=== PATIENT | male | born 1985 | race Asian ===

== ENCOUNTER → 2016-12-05 14:49 | Emergency (ER) | payer OTHER ==
[2016-12-05 16:32] VITALS: BP 117/61
--- NOTE | 2016-12-05 23:50 | ED ---
Zahra Almaguer Emily, scribed for Rajeev Terry MD on 12/05/16 at 1605 . Throat Pain/Nasal Congestion - HPI Summary HPI Summary: This patient is a 30 year old M presenting to [facility] with a chief complaint of right-sided blurry vision since this afternoon. Blurriness began after pt was hit in the eye with a tennis ball. The patient rates the pain 3/10 in severity. Symptoms aggravated by looking right. Symptoms alleviated by nothing. Pt reports having implants in eyes. - History of Current Complaint Chief Complaint: EDEyeProblem Time Seen by Provider: 12/05/16 15:47 Hx Obtained From: Patient Onset/Duration: Sudden Onset, Lasting Hours Severity: Mild - Allergies/Home Medications Allergies/Adverse Reactions: Allergies Allergy/AdvReac Type Severity Reaction Status Date / Time No Known Allergies Allergy Verified 12/05/16 15:01 PMH/Surg Hx/FS Hx/Imm Hx Previously Healthy: No Opthamlomology History: Reports: Hx Eye Prosthesis EENT History: Denies: Hx Deafness Infectious Disease History: No Infectious Disease History: Denies: Traveled Outside the [place] in Last 30 Days - Family History Known Family History: Positive: Diabetes Negative: Cardiac Disease - Social History Alcohol Use: Rare Substance Use Type: Reports: None Smoking Status (MU): Light Every Day Tobacco Smoker Review of Systems Negative: Fever Positive: Blurred Vision - Right sided All Other Systems Reviewed And Are Negative: Yes Physical Exam Triage Information Reviewed: Yes Vital Signs On Initial Exam: Initial Vitals Temp Pulse Resp BP Pulse Ox 97.8 F 92 16 120/82 100 12/05/16 14:57 12/05/16 14:57 12/05/16 14:57 12/05/16 14:57 12/05/16 14:57 Vital Signs Reviewed: Yes Appearance: Positive: Well-Appearing, No Pain Distress Skin: Positive: Warm, Skin Color Reflects Adequate Perfusion, Dry Head/Face: Positive: Normal Head/Face Inspection Eyes: Positive: Other: - Elliptical pupil in R eye ENT: Positive: Normal ENT inspection Neck: Positive: Supple, Nontender Respiratory/Lung Sounds: Positive: Clear to Auscultation, Breath Sounds Present Cardiovascular: Positive: RRR Abdomen Description: Positive: Nontender, Soft Bowel Sounds: Positive: Present Musculoskeletal: Positive: Normal Neurological: Positive: Normal Psychiatric: Positive: Affect/Mood Appropriate - Lacey Coma Scale Coma Scale Total: 15 Diagnostics - Vital Signs Vital Signs Temp Pulse Resp BP Pulse Ox 12/05/16 14:57 97.8 F 92 16 120/82 100 - Laboratory Lab Statement: Any lab studies that have been ordered have been reviewed, and results considered in the medical decision making process. EENT Course/Dx - Course Course Of Treatment: Mr. Chan was sent over to Dr. Thomas's office for further evaluation. - Diagnoses Provider Diagnoses: Blunt trauma, right eye - Provider Notifications Discussed Care Of Patient With: David Thomas Time Discussed With Above Provider: 16:17 Instructed by Provider To: Other - Consulted with Dr. Thomas (ophthalmology) at 1617. He agrees to see the pt at his office. Discharge - Discharge Plan Condition: Stable Disposition: HOME Referrals: David Thomas MD [Medical Doctor] - As Soon As Possible Additional Instructions: SEE DR. THOMAS AT 5:15 PM. RETURN TO THE EMERGENCY DEPARTMENT FOR CHANGING OR WORSENING SYMPTOMS. The documentation as recorded by the Zahra whiting Emily accurately reflects the service I personally performed and the decisions made by me, Rajeev Terry MD.
== END | disposition home or self-care (01) ==
LOC: ED 14:49
DX: H53.8 Other visual disturbances (principal); F17.210 Nicotine dependence, cigarettes, uncomplicated; S05.91XA Unspecified injury of right eye and orbit, initial encounter; W21.09XA Struck by other hit or thrown ball, initial encounter; Y93.89 Activity, other specified; Y92.89 Other specified places as the place of occurrence of the external cause
CPT/HCPCS: 99281